=== PATIENT | female | born 1985 | race African-American/Black ===

== ENCOUNTER 2019-04-27 20:40 | Emergency (ER) | payer SELFPAY ==
[~2019-04-27] VITALS: Ht 154.9 cm; Wt 68.0 kg
[2019-04-27 20:52] VITALS: BP 113/79
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
[2019-04-27] MEDS: Albuterol ud Inhalation HHN SCH ×3 (21:08→21:30)
[2019-04-27] MEDS: Ipratropium 0.02% Inh Soln 2.5ml UD HHN SCH ×3 (21:08→21:30)
[2019-04-27] MEDS ORDERED: ALBUTEROL SULF8.5 GM INH (21:28)
[2019-04-27] MEDS ORDERED: PREDNISONE50 MG ORAL (21:28)
[2019-04-27 22:00] VITALS: BP 113/79
--- NOTE | 2019-04-27 22:01 | NUR ---
ED Nurse Note: Pt cleared by health care Provider for discharge. DC instructions/prescription was given and explained to pt and verbalized understanding of teachings. All medical deviecs such as ID band removed. Pt is AAO x4, ambulatory and left with all personal belongings.
--- NOTE | 2019-04-28 09:37 | Diagnostic Imaging Report ---
Indication: Dyspnea Comparison: None A single view chest radiograph was obtained. Findings: Cardiomediastinal appearance is within normal limits for age. The lungs are clear. Pulmonary vascularity is appropriate. The diaphragmatic contour is smooth and costophrenic angles are sharp. No pleural effusions are identified. The bones are unremarkable. Impression: No acute findings
== END 2019-04-27 22:01 | disposition home or self-care (01) ==
LOC: EMR 21:30
DX: J06.9 Acute upper respiratory infection, unspecified (principal); J45.21 Mild intermittent asthma with (acute) exacerbation
CPT/HCPCS: 71045; 94640; 94664; 99284; J7512